=== PATIENT | female | born 1985 | race Caucasian/White ===

== ENCOUNTER 2018-05-29 13:05 | Emergency (ER) | payer MEDICAID ==
[~2018-05-29] VITALS: Ht 165.1 cm; Wt 51.0 kg
[~2018-05-29 13:05] MED LIST: ALBU1.25 NEB; ALPR1TAB2 PO; CEFD300C37 PO; CEPH-368 PO; HYDR-3237 PO; HYDR-3240 PO; HYDR2TAB29 PO; LORA-446 PO; METR500T PO; OMEP-110 PO; ONDA4TAB7 PO
--- NOTE | 2018-05-29 13:25 | NUR ---
BIB [facility] FOR N/V/MALAISE X 1 WEEK. ALSO RIGHT FLANK PAIN
--- NOTE | 2018-05-29 13:27 | NUR ---
PER EMS 1500 MS AND 4 ZOFRAN ADMIN BUSINESS DEVELOPMENT PROFESSIONAL
[2018-05-29] MEDS ORDERED: DICYCLOMINE 10 MG/ML, 2ML ONE (13:29)
[2018-05-29] MEDS ORDERED: DICYCLOMINE 10 MG/ML, 2ML IM ONE (13:30)
[2018-05-29 13:46] LABS: BASOPHILS # (AUTO) 0.02 x10^3/uL (0-0.1); BASOPHILS % (AUTO) 0 % (0-1); EOSINOPHILS # (AUTO) 0.01 x10^3/uL (0-0.4); EOSINOPHILS % (AUTO) 0 % (1-7); LYMPHOCYTES # (AUTO) 1.26 x10^3/uL (1-3.4); LYMPHOCYTES % (AUTO) 15 % (22-44); MD NO; MEAN CORPUSCULAR VOLUME 91.3 fL (80-100); MEAN PLATELET VOLUME 8.6 fL (7.4-10.4); MONOCYTES # (AUTO) 0.51 x10^3/uL (0.2-0.8); MONOCYTES % (AUTO) 6 % (2-9); NEUTROPHILS # (AUTO) 6.78 x10^3/uL (1.8-6.8); NEUTROPHILS % (AUTO) 79 % (42-75); PLATELET COUNT 214 x10^3/uL (130-400); RED BLOOD COUNT 5.03 x10^6/uL (3.82-5.3); RED CELL DISTRIBUTION WIDTH 13.8 % (9.6-15.2)
[2018-05-29 13:47] LABS: ALANINE AMINOTRANSFERASE 13 U/L (12-78); ALBUMIN 3.8 g/dL (3.4-5.0); ANION GAP 11 mmol/L (5-15); CALCIUM 8.5 mg/dL (8.5-10.1); CHLORIDE 111 mmol/L (98-107); CREATININE 0.77 mg/dL (0.55-1.02)
[2018-05-29 13:51] LABS: ALKALINE PHOSPHATASE 70 U/L (45-117); BILIRUBIN,TOTAL 0.7 mg/dL (0.2-1.0); TOTAL PROTEIN 7.3 g/dL (6.4-8.2)
--- NOTE | 2018-05-29 14:34 | NUR ---
PT IN ROOM ON PHONE AND STATES NAUSEA IS BETTER.
[2018-05-29 15:01] LABS: MICROSCOPIC INDICATED
[2018-05-29 15:02] LABS: CULTURE INDICATED? YES
[2018-05-29 16:01] VITALS: BP 96/70
== END 2018-05-29 16:05 | disposition home or self-care (01) ==
LOC: ED 15:50
DX: R10.84 Generalized abdominal pain (principal); R11.2 Nausea with vomiting, unspecified; Z88.6 Allergy status to analgesic agent
CPT/HCPCS: 36415; 80053; 81001; 83690; 84703; 85025; 87086; 96372; 99283; J0500

== ENCOUNTER 2019-04-24 21:53 | Emergency (ER) | payer MEDICAID, OTHER ==
[~2019-04-24] VITALS: Ht 160 cm; Wt 50.7 kg
[~2019-04-24 21:53] MED LIST changes: +CIPR500T87 PO; +VANC1VIA3 PO; +XANAX; +[UNRECOGNIZED DRUG - OTHER]
[2019-04-24] MEDS ORDERED: ONDANSETRON 2MG/ML, 2ML IVPush ONE (23:30)
[2019-04-24] MEDS ORDERED: MORPHINE SULFATE 4 MG/ML, 1ML IVPush PRN (23:30)
[2019-04-24] MEDS ORDERED: SODIUM CHLORIDE 0.9% 1,000ML IV ONE (23:30)
--- NOTE | 2019-04-24 23:30 | NUR ---
2 IV ATTEMPTS FAILED BY THIS RN. PT GOING TO CT AT THIS TIME. WILL HAVE ANOTHER RN TRY IV.
[2019-04-24] MEDS ORDERED: MORPHINE SULFATE 4 MG/ML, 1ML ONE (23:36)
[2019-04-24] MEDS ORDERED: ONDANSETRON 2MG/ML, 2ML ONE (23:36)
[2019-04-24 23:44] LABS: BASOPHILS # (AUTO) 0.05 x10^3/uL (0-0.1); BASOPHILS % (AUTO) 1 % (0-1); EOSINOPHILS # (AUTO) 0.03 x10^3/uL (0-0.4); EOSINOPHILS % (AUTO) 0 % (1-7); LYMPHOCYTES # (AUTO) 2.12 x10^3/uL (1-3.4); LYMPHOCYTES % (AUTO) 21 % (22-44); MD NO; MEAN CORPUSCULAR HEMOGLOBIN 29.9 pg (27.0-34.8); MEAN CORPUSCULAR HGB CONC 32.8 g/dL (32.4-35.8); MEAN CORPUSCULAR VOLUME 90.9 fL (80-100); MEAN PLATELET VOLUME 7.6 fL (7.4-10.4); MONOCYTES # (AUTO) 0.69 x10^3/uL (0.2-0.8); MONOCYTES % (AUTO) 7 % (2-9); NEUTROPHILS # (AUTO) 7.36 x10^3/uL (1.8-6.8); NEUTROPHILS % (AUTO) 72 % (42-75); PLATELET COUNT 366 x10^3/uL (130-400); RED BLOOD COUNT 4.94 x10^6/uL (3.82-5.3); RED CELL DISTRIBUTION WIDTH 16.3 % (9.6-15.2)
[2019-04-24 23:53] LABS: ALANINE AMINOTRANSFERASE 23 U/L (12-78); ALBUMIN 3.6 g/dL (3.4-5.0); ANION GAP 6 mmol/L (5-15); CALCIUM 9.2 mg/dL (8.5-10.1); CHLORIDE 107 mmol/L (98-107); CREATININE 0.75 mg/dL (0.55-1.02)
[2019-04-24 23:58] LABS: ALKALINE PHOSPHATASE 81 U/L (45-117); BILIRUBIN,TOTAL 0.3 mg/dL (0.2-1.0); TOTAL PROTEIN 8.3 g/dL (6.4-8.2)
--- NOTE | 2019-04-25 00:37 | NUR ---
PT RESTING IN BED WITH EYES CLOSED. NO STATED NEEDS. BILAT BEDRAILS UP.
--- NOTE | 2019-04-25 01:11 | NUR ---
IV PALCED, ORDERED MEDS AND FLUIDS GIVEN. WILL CONTINUE TO MONITOR. PT PLACED BACK ON VITALS MONITORS.
--- NOTE | 2019-04-25 01:53 | NUR ---
PT ABLE TO PROVIDE URINE SAMPLE. URINE WALKED TO LAB. PT ABLE TO AMBULATE STEADILY TO BATHROOM. PT GIVEN ANOTHER WARM BLANKET. CT HAS RESUTLED, NOW AWAITING URINE.
[2019-04-25 02:05] LABS: CULTURE INDICATED? YES; MICROSCOPIC INDICATED
[2019-04-25] MEDS ORDERED: CEFDINIR 300 MG CAPSULE PO ONE (03:00)
[2019-04-25] MEDS ORDERED: CEFDINIR 300 MG CAPSULE ONE (03:18)
[2019-04-25 03:22] VITALS: BP 97/60
== END 2019-04-25 03:29 | disposition home or self-care (01) ==
LOC: ED 04-25 02:15
DX: N10 Acute pyelonephritis (principal); N39.0 Urinary tract infection, site not specified; R11.2 Nausea with vomiting, unspecified; R19.7 Diarrhea, unspecified; F17.200 Nicotine dependence, unspecified, uncomplicated
CPT/HCPCS: 36415; 74176; 80053; 81001; 83690; 84703; 85025; 87077; 87086; 87186; 96361; 96374; 96375; 99284; J2270; J2405; J7030